=== PATIENT | female | born 1970 | race Caucasian/White ===

== ENCOUNTER 2016-08-23 11:47 | Emergency (ER) | payer OTHER ==
--- NOTE | 2016-08-23 15:04 | DIAGNOSTIC IMAGING REPORT ---
PROCEDURE: CT ABDOMEN/PELVIS W/O CONTRAST INDICATION: Right flank pain. TECHNIQUE: Noncontrast axial images were obtained of the entire abdomen and pelvis with sagittal and coronal reformations. COMPARISON: CT abdomen/pelvis 09/10/2010. FINDINGS: ABDOMEN: 3 mm nonobstructing left renal calculus. Normal right kidney and ureters. Mild right middle lobe and lingular scarring. Left breast implant. Heart size is normal. Liver, gallbladder, pancreas, spleen and adrenal glands are normal. Normal abdominal aorta. Minor inflammation of the root of the mesentery with a few small lymph nodes. Nonspecific bowel gas pattern. PELVIS: History of appendectomy. Enlarged uterus measures 11.8 x 9.0 x 6.8 cm. Nabothian cyst. Vaginal tampon in place. No pelvic mass, inflammatory changes or free fluid. Mild levoscoliosis. IMPRESSION: 1. 3 mm nonobstructing left renal calculus 2. Minor inflammatory changes of the root of the mesentery with a few small mesenteric nodes. 3. Appendectomy 4. Enlarged uterus 5. Results discussed with RAYSHAWN Watts All CT scans at this facility use dose modulation, iterative reconstruction, and/or weight-based dosing when appropriate to reduce radiation dose to as low as reasonably achievable.
--- NOTE | 2016-08-23 15:07 | ED ORDER SUMMARY ---
..... Patient: BRENDEN ORTEGA OrderSheet [facility] VisitID: [id number] [place] [address] 46y, F Registration Date/Time: 08/23/2016 ORDER SHEET Weight: 86.1 kg (stated) Allergies: Augmentin, Sulfa Drugs GENERAL ORDERS: CBC w Diff Urgent (12:15 08/23/2016 EKoroleva P.A.-C) (Ack 12:17 PWeiler ER Tech1) (13:40 MWinterer R.N.) CMP Urgent (12:15 08/23/2016 EKoroleva P.A.-C) (Ack 12:17 PWeiler ER Tech1) (13:40 MWinterer R.N.) UA-Culture if indicated Urgent (12:15 08/23/2016 EKoroleva P.A.-C) (Ack 12:17 PWeiler ER Tech1) (13:43 MWinterer R.N.) Lipase Urgent (12:20 08/23/2016 EKoroleva P.A.-C) (Ack 12:24 PWeiler ER Tech1) (13:40 MWinterer R.N.) CT Abd/Pel wo Cont Urgent (14:16 08/23/2016 EKoroleva P.A.-C) (Ack 14:19 PWeiler ER Tech1) (14:47 MWinterer R.N.) Vitals (14:30 08/23/2016 EKoroleva P.A.-C) (14:49 MWinterer R.N.) Culture, Urine (Urine, Clean Catch) (from urine in lab) Urgent (15:06 08/23/2016 EKoroleva P.A.-C) (Ack 15:08 PWeiler ER Tech1) (15:18 PWeiler ER Tech1) MEDICATION ORDERS: Hydrocodone-APAP PO 5/325 mg (NOW, HIGH ALERT MEDICATION) (15:15 08/23/2016 EKoroleva P.A.-C) (15:23 MWinterer R.N.) IV FLUIDS: Dilaudid IV 0.5 mg (HIGH ALERT MEDICATION, NOW) (12:15 08/23/2016 Anitra Almanza) (Ack 12:17 MWinterer R.N.) (12:39 MWinterer R.N.) IV Saline Lock (12:15 08/23/2016 Anitra Almanza) (Ack 12:17 MWinterer R.N.) (12:38 MWinterer R.N.) Valium IV 2 mg (HIGH ALERT MEDICATION, NOW) (13:38 08/23/2016 Anitra Almanza) (Ack 13:40 MWinterer R.N.) (Cancelled: Patient Ogpbgnd60:43 MWinterer R.N.) Toradol IV 30 mg (NOW) (13:44 08/23/2016 MWinterer R.N. verbal order read back to Anitra Almanza) (Ack 13:44 MWinterer R.N.) (14:02 MWinterer R.N.) ORDER SHEET NOTES: [Electronically signed by Radhika Awan P.A.-C (15:58 08/23/2016)] [Electronically signed by Abbey Cano R.N. (16:13 08/23/2016)] [Electronically locked/signed by Abbey Cano R.N. (16:13 08/23/2016)]
--- NOTE | 2016-08-23 15:07 | ED NURSING NOTES ---
Clinical Report - Nurses [address] [place] [address] 08/23/2016 11:50 Patient: BRENDEN ORTEGA TRIAGE Acuity: LEVEL 3. Chief Complaint: NAUSEA and FLANK PAIN. Alert. No acute distress. SEPSIS SCREEN: Sepsis Screen. Negative (no infection suspected/documented). --12:16 Abbey Cano R.N. 11:59 08/23/16. BP: 151/90. HR: 81. RR: 20. O2 saturation: 98%. Temp: 98.4 F (oral). Pain level now: 09/29. --12:16 Abbey Cano R.N. Weight: 86.1 kg stated. Height/Length: 64 inches Per Patient. BMI: 32.6. --12:13 Abbey Cano R.N. Medications Remicade Intravenous, every 7 weeks. --12:08 Abbey Cano R.N. AzaTHIOprine Oral (Tablet 50 mg). --12:08 Abbey Cano R.N. Cholecalciferol Oral 10 mg . --12:09 Abbey Cano R.N. Dicyclomine HCl Oral 10 mg. --12:09 Abbey Cano R.N. Hyoscyamine Sulfate Oral. --12:10 Abbey Cano R.N. Minocycline Hcl Oral. --12:10 Abbey Cano R.N. Omeprazole Oral. --12:10 Abbey Cano R.N. Tylenol Oral. --12:10 Abbey Cano R.N. Vedolizumab Intravenous. --12:11 Abbey Cano R.N. Medication/allergy information source: the patient. --12:16 Abbey Cano R.N. Allergies Augmentin. Sulfa Drugs. --12:14 Abbey Cano R.N. History Arrived by private vehicle. Historian: patient. Unaccompanied. Primary physician (Jodee). Onset. (6 days ago). Relates location as in the right flank area. She has had nausea and vomiting. No diarrhea. 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 PAST MEDICAL HX: Crohn's disease. Immunizations: up-to-date. Last normal menstrual period now. Has had a tubal ligation. SOCIAL HX: Light tobacco smoker (cigarette)- less than 1/2 a pack per day. Occasional alcohol use. History of weekly drug use: marijuana. No recent travel. No known contact with a sick individual. FALL RISK ASSESSMENT: Fall risk assessment completed. No fall risk identified. NUTRITIONAL RISK ASSESSMENT: The nutritional risk assessment revealed no deficiencies. FUNCTIONAL ASSESSMENT: Functional assessment: no impairments noted. LEARNING NEEDS ASSESSMENT: The learning needs assessment revealed no barriers. SKIN INTEGRITY ASSESSMENT: Skin integrity risk assessment completed. No skin integrity risk identified. --12:16 Abbey Cano R.N. PROBLEMS: Nephrolithiasis. --12:12 Abbey Cano R.N. ADDITIONAL SURGERIES: Appendectomy. --12:15 Abbey Cano R.N. Tubal Ligation. --12:15 Abbey Cano R.N. Assessment GENERAL / NEURO / PSYCH: Alert. Oriented X 4. Appears in no acute distress. Patient appears calm and cooperative. RESPIRATORY: Respirations not labored. CVS: Capillary refill less than 2 seconds. GI / : Abdomen soft and nontender. SKIN: Mucous membranes are pink. Skin is warm and dry. --12:16 Abbey Cano R.N. Interventions ID band on patient. To treatment room. Ambulatory. --12:16 Abbey Cano R.N. PHYSICAL ASSESSMENT 12:08/23/16. Ambulatory to room. GENERAL / NEURO / PSYCH: Alert. Oriented X 4. Appears in no acute distress. HEENT: Mucous membranes are pink. RESPIRATORY: Respirations not labored. CVS: Capillary refill less than 2 seconds. GI / : Abdomen soft. SKIN: Skin is warm and dry. --12:02 Abbey Cano R.N. NURSING PROGRESS NOTES 12:08/23/16. The initial plan of care for this patient has been created This plan of care was discussed with the patient. Patient gowned. Two patient identifiers checked. Checked patient name and birthdate: patient confirmed. Call light placed in reach. Side rails up x 1. Bed placed in lowest position. Brakes of bed on. Patient ready for evaluation- chart flagged and ED physician notified. --12:02 Abbey Cano R.N. 12:18 08/23/2016 Site #1 started via IV in the left antecubital space with an 20g angiocath, with aseptic technique and good blood return; one attempt. Blood drawn: rainbow set. Labeled in the presence of the patient and sent to the lab. Saline lock flushed with 10 mL saline. --12:18 Abbey Cano R.N. 12:39 08/23/2016 Dilaudid (HYDROmorphone HCl PF) IVP 0.5 mg given over 2 minute(s) via site #1. Allergies verified, confirmed 5 rights and sedative warning given to the patient. IV patency established. IV site checked: no pain, redness, or swelling. IV flushed thoroughly pre- and post-medication administration. IVP given by RN. --12:39 Abbey Cano R.N. 12:39 08/23/16. Pulse oximeter placed on patient; monitor alarms on. --12:39 Abbey Cano R.N. 13:44 08/23/16. Checked patient name and birthdate: patient confirmed. Instructions provided to collect clean catch urine and patient verbalized understanding. Clean catch urine collected with return of yellow-colored clear urine; sample sent to lab for urinalysis. Specimen labeled in the presence of the patient. --13:45 Abbye Cano R.N. 13:52 08/23/2016 Toradol IVP 30 mg given over 1 minute(s) via site #1. Allergies verified and confirmed 5 rights. IV patency established. IV site checked: no pain, redness, or swelling. IV flushed thoroughly pre- and post-medication administration. IVP given by RN. --14:02 Abbey Cano R.N. 14:50 08/23/16. BP: 135/72. HR: 70. RR: 16. O2 saturation: 100%. Temp: 98.3 F (oral). Pain level now: 07/30. --14:51 Abbey Cano R.N. 15:08 08/23/2016 Hydrocodone-APAP (Hydrocodone-Acetaminophen) PO 5/325 mg Tablets 1 tab given. Allergies verified, confirmed 5 rights and sedative warning given to the patient. --15:23 Abbey Cano R.N. DISPOSITION / DISCHARGE Departure time: 15:15 Aug 23 2016. Condition at departure: improved and stable. No learning barriers present. Discharge instructions provided and reviewed with the patient. Reviewed medication(s) side effects, precautions and dosing information. Prescription(s) given to the patient. Patient verbalized understanding. Written instructions provided in Burmese. The patient was discharged by the physician occupational therapist assistants. She was discharged home and accompanied by parent. She left the Emergency Department ambulatory and via private vehicle. Parent driving. --16:13 Abbey Cano R.N. Locked/Released at 08/23/2016 16:13 by Abbey Cano R.N.
--- NOTE | 2016-08-23 15:07 | ED CLINICAL REPORT ---
Clinical Report - Physicians/Mid Levels [facility] [address] [place] [address] 08/23/2016 11:50 Patient: BRENDEN ORTEGA Time Seen: 12:19 Aug 23 2016. Arrived- By private vehicle. Historian- patient. HISTORY OF PRESENT ILLNESS Chief Complaint: ABDOMINAL PAIN. This started 5 days. (patient presents to the emergency department with abdominal pain over the last 5-6 days, on the flank side of her right lower back with minimal radiation, history of similar with nephrolithiasis. She reports some constipation. Unsure of her last bowel movement. Reports pain improves with decrease in movement/ activity. Currently on her menses. Patient reports history of Crohn's disease, with pain anywhere from her "mouth to anus" as she reports, with swelling of her intestine, and reports intestinal pain chronically.). REVIEW OF SYSTEMS No constipation, black stools, difficulty with urination, urinary frequency or fever. No blurred vision. All systems otherwise negative, except as recorded above. PAST HISTORY Problems: Nephrolithiasis. Crohn's Disease. Additional Surgeries: Appendectomy. Tubal Ligation. Medications: Vedolizumab Intravenous. Tylenol Oral. Omeprazole Oral. Minocycline Hcl Oral. Hyoscyamine Sulfate Oral. Dicyclomine HCl Oral 10 mg. Cholecalciferol Oral 10 mg . AzaTHIOprine Oral (Tablet 50 mg). Remicade Intravenous, every 7 weeks. Allergies: Augmentin. Sulfa Drugs. SOCIAL HISTORY Light tobacco smoker. Alcohol use. History of drug use: marijuana. ADDITIONAL NOTES The nursing notes have been reviewed. PHYSICAL EXAM Vital Signs: 08/23/2016 11:59 BP: 151/90. HR: 81. RR: 20. O2 saturation: 98%. Temp: 98.4 F. Pain level now: 8/10. Appearance: Oriented X3. Appears to be in pain. Patient in mild distress. Eyes: Eyes normal inspection. Neck: Normal inspection. CVS: Normal heart rate and rhythm. Heart sounds normal. Respiratory: No respiratory distress. Breath sounds normal. Abdomen: Soft. No abdominal tenderness or rebound tenderness. The bowel sounds are not abnormal. Back: Normal inspection. No CVA tenderness. Neuro: Oriented X 3. LABS, X-RAYS, AND EKG Abdominal CT: IMPRESSION: 1. 3 mm nonobstructing left renal calculus 2. Minor inflammatory changes of the root of the mesentery with a few small mesenteric nodes. 3. Appendectomy 4. Enlarged uterus 5. Results discussed with Laura Awan, PAC All CT scans at this facility use dose modulation, iterative reconstruction, and/or weight-based dosing when appropriate to reduce radiation dose to as low as reasonably achievable. Electronically Final signed by:Pankaj Godfrey MD 08/23/2016 3:04:26 PM. Laboratory Tests: UA-Culture if indicated: (LYLY: 08/23/2016 13:40) ( [facility] 08/23/2016 14:13) Final results Test Result Flag Units (Reference) URINE COLOR YELLOW URINE APPEARANCE CLEAR URINE GLUCOSE NEGATIVE (NEGATIVE) URINE BILIRUBIN NEGATIVE (NEGATIVE) URINE KETONE NEGATIVE (NEGATIVE) URINE SPECIFIC GRAVITY 1.010 (1.010-1.030) URINE PH 7.0 (5.0-8.0) URINE PROTEIN NEGATIVE (NEGATIVE) URINE UROBILINOGEN 0.2 EU/dL (0.2-1.0) URINE NITRITE NEGATIVE (NEGATIVE) URINE BLOOD TRACE-LYSED (NEGATIVE) URINE LEUK ESTERASE NEGATIVE (NEGATIVE) URINE RBC 1-3 rbc/hpf (0-1) URINE WBC RARE wbc/hpf (0-1) URINE EPITHELIAL CELLS 0-1 EPI/hpf (0-5) URINE BACTERIA FEW (1+) (NONE SEEN) URINE COMMENT CULT NOT INDICATED URINE CULTURES ARE SET-UP BASED ON THE FOLLOWING CRITERIA:POSITIVE NITRITEPOSITIVE LEUKOCYTE ESTERASEGREATER THAN 10 WHITE BLOOD CELLSMODERATE (2+) OR GREATER BACTERIA CBC w Diff: (LYLY: 08/23/2016 12:20) ( [facility] [place] 08/23/2016 12:27) Final results Test Result Flag Units (Reference) WHITE BLOOD COUNT 9.5 K/uL (4.5-11.5) RED BLOOD COUNT 4.37 M/uL (4.00-5.20) HEMOGLOBIN 11.5 L gm/dL (12.0-16.0) HEMATOCRIT 35.9 L % (36.0-46.0) MEAN CELL VOLUME 82 fL (80-100) MEAN CORPUSCULAR HGB 26 pg (26-34) MEAN CORPUSCULAR HGB CONC 32 g/dL (31-37) RED CELL DISTRIBUTION WIDTH 16.4 H % (11.6-14.8) PLATELET COUNT 374 K/uL (150-400) NEUTROPHIL % 73.2 % (50-75) LYMPH % 21.6 L % (25-40) MONO % 3.2 % (3-14) EOSINOPHIL % 1.6 % (0-4) BASOPHIL % 0.4 % (0-2) CMP: (LYLY: 08/23/2016 12:20) ( MsgRcvd 08/23/2016 12:42) Final results Test Result Flag Units (Reference) GLUCOSE 104 mg/dL (70-110) BUN 6 L mg/dL (7-18) CREATININE 0.8 mg/dL (0.6-1.3) Estimated GFR >60 mL/min Estimated GFR- >60 mL/min Note: Persistent reduction over 3 months in eGFR<60 mL/min/1.73 m2 defines CKD. Patients with eGFR values>=60 mL/min/1.73 m2 may also have CKD if evidence ofpersistent proteinuria. Additional information may be foundat www.kidney.org. SODIUM 139 mmol/L (136-145) POTASSIUM 3.7 mmol/L (3.5-5.1) CHLORIDE 103 mmol/L (98-107) CARBON DIOXIDE 25 mmol/L (21-32) CALCIUM 8.5 mg/dL (8.5-10.1) TOTAL PROTEIN 7.7 g/dL (6.4-8.2) ALBUMIN 3.0 L g/dL (3.3-5.0) BILIRUBIN, TOTAL 0.5 mg/dL (0.0-1.0) ALKALINE PHOSPHATASE 75 U/L (46-116) AST (SGOT) 25 U/L (15-37) ALT (SGPT) 24 U/L (12-78) LIPASE 204 U/L (73-393) . PROGRESS AND PROCEDURES Course of Care: Afebrile patient with reproducible pain on the lumbar right flank sign. Abdomen is soft nontender. Labs are unremarkable, CT abdomen unremarkable. During the time in the ED, the following DDX were considered: acute surgical abdomen, hemodynamic or metabolic instability, dehydration, gastroenteritis-viral, food borne, or bacterial, food intolerance, irritable or inflammatory bowel, infection, sepsis. 08/23/2016 14:50 BP: 135/72. HR: 70. RR: 16. O2 saturation: 100%. Temp: 98.3 F. Pain level now: 610. Patient is stable. Symptoms better. Patient/family counseled. Disposition: Discharged. Condition: good. CLINICAL IMPRESSION Acute lumbar strain. Acute right flank pain INSTRUCTIONS Drink plenty of fluids. (alternate ice/ heat). Prescription Medications: Hydrocodone/APAP 5mg / 325mg: take 1 orally every 6 hours as needed for pain. Dispense twelve (12). No refill. (Electronically signed by Radhika Awan P.A.-C 08/23/2016 15:58)
--- NOTE | 2016-08-23 15:07 | ED NURSING NOTES ---
Clinical Report - Nurses [address] [place] [address] 08/23/2016 11:50 Patient: BRENDEN ORTEGA TRIAGE Acuity: LEVEL 3. Chief Complaint: NAUSEA and FLANK PAIN. Alert. No acute distress. SEPSIS SCREEN: Sepsis Screen. Negative (no infection suspected/documented). --12:16 Abbey Cano R.N. 11:59 08/23/16. BP: 151/90. HR: 81. RR: 20. O2 saturation: 98%. Temp: 98.4 F (oral). Pain level now: 09/29. --12:16 Abbey Cano R.N. Weight: 86.1 kg stated. Height/Length: 64 inches Per Patient. BMI: 32.6. --12:13 Abbey Cano R.N. Medications Remicade Intravenous, every 7 weeks. --12:08 Abbey Cano R.N. AzaTHIOprine Oral (Tablet 50 mg). --12:08 Abbey Cano R.N. Cholecalciferol Oral 10 mg . --12:09 Abbey Cano R.N. Dicyclomine HCl Oral 10 mg. --12:09 Abbey Cano R.N. Hyoscyamine Sulfate Oral. --12:10 Abbey Cano R.N. Minocycline Hcl Oral. --12:10 Abbey Cano R.N. Omeprazole Oral. --12:10 Abbey Cano R.N. Tylenol Oral. --12:10 Abbey Cano R.N. Vedolizumab Intravenous. --12:11 Abbey Cano R.N. Medication/allergy information source: the patient. --12:16 Abbey Cano R.N. Allergies Augmentin. Sulfa Drugs. --12:14 Abbey Cano R.N. History Arrived by private vehicle. Historian: patient. Unaccompanied. Primary physician (Jodee). Onset. (6 days ago). Relates location as in the right flank area. She has had nausea and vomiting. No diarrhea. 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 PAST MEDICAL HX: Crohn's disease. Immunizations: up-to-date. Last normal menstrual period now. Has had a tubal ligation. SOCIAL HX: Light tobacco smoker (cigarette)- less than 1/2 a pack per day. Occasional alcohol use. History of weekly drug use: marijuana. No recent travel. No known contact with a sick individual. FALL RISK ASSESSMENT: Fall risk assessment completed. No fall risk identified. NUTRITIONAL RISK ASSESSMENT: The nutritional risk assessment revealed no deficiencies. FUNCTIONAL ASSESSMENT: Functional assessment: no impairments noted. LEARNING NEEDS ASSESSMENT: The learning needs assessment revealed no barriers. SKIN INTEGRITY ASSESSMENT: Skin integrity risk assessment completed. No skin integrity risk identified. --12:16 Abbey Cano R.N. PROBLEMS: Nephrolithiasis. --12:12 Abbey Cano R.N. ADDITIONAL SURGERIES: Appendectomy. --12:15 Abbey Cano R.N. Tubal Ligation. --12:15 Abbey Cano R.N. Assessment GENERAL / NEURO / PSYCH: Alert. Oriented X 4. Appears in no acute distress. Patient appears calm and cooperative. RESPIRATORY: Respirations not labored. CVS: Capillary refill less than 2 seconds. GI / : Abdomen soft and nontender. SKIN: Mucous membranes are pink. Skin is warm and dry. --12:16 Abbey Cano R.N. Interventions ID band on patient. To treatment room. Ambulatory. --12:16 Abbey Cano R.N. PHYSICAL ASSESSMENT 12:08/23/16. Ambulatory to room. GENERAL / NEURO / PSYCH: Alert. Oriented X 4. Appears in no acute distress. HEENT: Mucous membranes are pink. RESPIRATORY: Respirations not labored. CVS: Capillary refill less than 2 seconds. GI / : Abdomen soft. SKIN: Skin is warm and dry. --12:02 Abbey aCno R.N. NURSING PROGRESS NOTES 12:08/23/16. The initial plan of care for this patient has been created This plan of care was discussed with the patient. Patient gowned. Two patient identifiers checked. Checked patient name and birthdate: patient confirmed. Call light placed in reach. Side rails up x 1. Bed placed in lowest position. Brakes of bed on. Patient ready for evaluation- chart flagged and ED physician notified. --12:02 Abbey Cano R.N. 12:18 08/23/2016 Site #1 started via IV in the left antecubital space with an 20g angiocath, with aseptic technique and good blood return; one attempt. Blood drawn: rainbow set. Labeled in the presence of the patient and sent to the lab. Saline lock flushed with 10 mL saline. --12:18 Abbey Cano R.N. 12:39 08/23/2016 Dilaudid (HYDROmorphone HCl PF) IVP 0.5 mg given over 2 minute(s) via site #1. Allergies verified, confirmed 5 rights and sedative warning given to the patient. IV patency established. IV site checked: no pain, redness, or swelling. IV flushed thoroughly pre- and post-medication administration. IVP given by RN. --12:39 Abbey Cano R.N. 12:39 08/23/16. Pulse oximeter placed on patient; monitor alarms on. --12:39 Abbey Cano R.N. 13:44 08/23/16. Checked patient name and birthdate: patient confirmed. Instructions provided to collect clean catch urine and patient verbalized understanding. Clean catch urine collected with return of yellow-colored clear urine; sample sent to lab for urinalysis. Specimen labeled in the presence of the patient. --13:45 Abbey Cano R.N. 13:52 08/23/2016 Toradol IVP 30 mg given over 1 minute(s) via site #1. Allergies verified and confirmed 5 rights. IV patency established. IV site checked: no pain, redness, or swelling. IV flushed thoroughly pre- and post-medication administration. IVP given by RN. --14:02 Abbey Cano R.N. 14:50 08/23/16. BP: 135/72. HR: 70. RR: 16. O2 saturation: 100%. Temp: 98.3 F (oral). Pain level now: 07/30. --14:51 Abbey Cano R.N. 15:08 08/23/2016 Hydrocodone-APAP (Hydrocodone-Acetaminophen) PO 5/325 mg Tablets 1 tab given. Allergies verified, confirmed 5 rights and sedative warning given to the patient. --15:23 Abbey Cano R.N. DISPOSITION / DISCHARGE Departure time: 15:15 Aug 23 2016. Condition at departure: improved and stable. No learning barriers present. Discharge instructions provided and reviewed with the patient. Reviewed medication(s) side effects, precautions and dosing information. Prescription(s) given to the patient. Patient verbalized understanding. Written instructions provided in Austrian. The patient was discharged by the physician showroom sales assistant. She was discharged home and accompanied by parent. She left the Emergency Department ambulatory and via private vehicle. Parent driving. --16:13 Abbey Cano R.N. Locked/Released at 08/23/2016 16:13 by Abbey Cano R.N.
--- NOTE | 2016-08-23 15:07 | ED ORDER SUMMARY ---
..... Patient: BRENDEN ORTEGA OrderSheet [facility] VisitID: [id number] [place] [address] 46y, F Registration Date/Time: 08/23/2016 ORDER SHEET Weight: 86.1 kg (stated) Allergies: Augmentin, Sulfa Drugs GENERAL ORDERS: CBC w Diff Urgent (12:15 08/23/2016 EKoroleva P.A.-C) (Ack 12:17 PWeiler ER Tech1) (13:40 MWinterer R.N.) CMP Urgent (12:15 08/23/2016 EKoroleva P.A.-C) (Ack 12:17 PWeiler ER Tech1) (13:40 MWinterer R.N.) UA-Culture if indicated Urgent (12:15 08/23/2016 EKoroleva P.A.-C) (Ack 12:17 PWeiler ER Tech1) (13:43 MWinterer R.N.) Lipase Urgent (12:20 08/23/2016 EKoroleva P.A.-C) (Ack 12:24 PWeiler ER Tech1) (13:40 MWinterer R.N.) CT Abd/Pel wo Cont Urgent (14:16 08/23/2016 EKoroleva P.A.-C) (Ack 14:19 PWeiler ER Tech1) (14:47 MWinterer R.N.) Vitals (14:30 08/23/2016 EKoroleva P.A.-C) (14:49 MWinterer R.N.) Culture, Urine (Urine, Clean Catch) (from urine in lab) Urgent (15:06 08/23/2016 EKoroleva P.A.-C) (Ack 15:08 PWeiler ER Tech1) (15:18 PWeiler ER Tech1) MEDICATION ORDERS: Hydrocodone-APAP PO 5/325 mg (NOW, HIGH ALERT MEDICATION) (15:15 08/23/2016 EKoroleva P.A.-C) (15:23 MWinterer R.N.) IV FLUIDS: Dilaudid IV 0.5 mg (HIGH ALERT MEDICATION, NOW) (12:15 08/23/2016 Anitra Almanza) (Ack 12:17 MWinterer R.N.) (12:39 MWinterer R.N.) IV Saline Lock (12:15 08/23/2016 Anitra Almanza) (Ack 12:17 MWinterer R.N.) (12:38 MWinterer R.N.) Valium IV 2 mg (HIGH ALERT MEDICATION, NOW) (13:38 08/23/2016 Anitra Almanza) (Ack 13:40 MWinterer R.N.) (Cancelled: Patient Lpswwrm08:43 MWinterer R.N.) Toradol IV 30 mg (NOW) (13:44 08/23/2016 MWinterer R.N. verbal order read back to Anitra Almanza) (Ack 13:44 MWinterer R.N.) (14:02 MWinterer R.N.) ORDER SHEET NOTES: [Electronically signed by Radhika Awan P.A.-C (15:58 08/23/2016)] [Electronically signed by Abbey Cano R.N. (16:13 08/23/2016)] [Electronically locked/signed by Abbey Cano R.N. (16:13 08/23/2016)]
--- NOTE | 2016-08-23 16:14 | ED MED RECONCILIATION SUMMARY ---
Patient: BRENDEN ORTEGA Medication Reconciliation Report [facility] VisitID: [id number] [address] [place] [address] 46y, F Registration Date/Time: 08/23/2016 Weight: 86.1 kg Height/Length: 64 in. BMI: 32.6 ALLERGIES: Augmentin, Sulfa Drugs The patient's Home Medications are listed below: THE FOLLOWING MEDICATIONS NEED TO BE RECONCILED: AzaTHIOprine Oral (50 mg) Cholecalciferol Oral 10 mg Dicyclomine HCl Oral 10 mg Hyoscyamine Sulfate Oral Minocycline Hcl Oral Omeprazole Oral Remicade Intravenous, every 7 weeks Tylenol Oral Vedolizumab Intravenous The source(s) of the original Home Medication information: patient The following Medications were given to the patient in the Emergency Department: Dilaudid [IVP] IVP 0.5 mg, administered: 08/23/2016 12:39:00 PM Toradol [IVP] IVP 30 mg, administered: 08/23/2016 1:52:00 PM Hydrocodone-APAP [PO] PO 1 tab, administered: 08/23/2016 3:08:00 PM The following Medications were prescribed to the patient: Hydrocodone/APAP 5mg / 325mg: take 1 orally every 6 hours as needed for pain. Dispense twelve (12). No refill. -- Radhika Awan P.A.-C
--- NOTE | 2016-08-23 16:14 | ED MAR SUMMARY ---
..... Medication Administration Record [facility] [address] [place] [address] Patient: BRENDEN ORTEGA Visit ID: [id number] 46y, F Weight: 86.1 kg Height/Length: 64 in BMI: 32.6 ALLERGIES: Augmentin, Sulfa Drugs Given 12:39 08/23/2016 Abbey Cano RTanya Medication Administered: DILAUDID [IVP] (HYDROMORPHONE HCL PF), Dose: 0.5 mg IVP over 2 minute(s), Site: #1 left AC. Medication Ordered: Dilaudid IV 0.5 mg (HIGH ALERT MEDICATION, NOW). Given 13:52 08/23/2016 Abbey Cano R.N. Medication Administered: TORADOL [IVP], Dose: 30 mg IVP over 1 minute(s), Site: #1 left AC. Medication Ordered: Toradol IV 30 mg (NOW). Given 15:08 08/23/2016 Abbey Cano R.NLinda Medication Administered: HYDROCODONE-APAP [PO] (HYDROCODONE-ACETAMINOPHEN), Dose: 1 tab 5/325 mg Tablets PO. Medication Ordered: Hydrocodone-APAP PO 5/325 mg (NOW, HIGH ALERT MEDICATION).
--- NOTE | 2016-08-23 16:14 | ED MAR SUMMARY ---
..... Medication Administration Record [facility] [address] [place] [address] Patient: BRENDEN ORTEGA Visit ID: [id number] 46y, F Weight: 86.1 kg Height/Length: 64 in BMI: 32.6 ALLERGIES: Augmentin, Sulfa Drugs Given 12:39 08/23/2016 Abbey Cano RTanya Medication Administered: DILAUDID [IVP] (HYDROMORPHONE HCL PF), Dose: 0.5 mg IVP over 2 minute(s), Site: #1 left AC. Medication Ordered: Dilaudid IV 0.5 mg (HIGH ALERT MEDICATION, NOW). Given 13:52 08/23/2016 Abbey Cano R.N. Medication Administered: TORADOL [IVP], Dose: 30 mg IVP over 1 minute(s), Site: #1 left AC. Medication Ordered: Toradol IV 30 mg (NOW). Given 15:08 08/23/2016 Abbey Cano R.NLinda Medication Administered: HYDROCODONE-APAP [PO] (HYDROCODONE-ACETAMINOPHEN), Dose: 1 tab 5/325 mg Tablets PO. Medication Ordered: Hydrocodone-APAP PO 5/325 mg (NOW, HIGH ALERT MEDICATION).
--- NOTE | 2016-08-23 16:14 | ED MED RECONCILIATION SUMMARY ---
Patient: BRENDEN ORTEGA Medication Reconciliation Report [facility] VisitID: [id number] [address] [place] [address] 46y, F Registration Date/Time: 08/23/2016 Weight: 86.1 kg Height/Length: 64 in. BMI: 32.6 ALLERGIES: Augmentin, Sulfa Drugs The patient's Home Medications are listed below: THE FOLLOWING MEDICATIONS NEED TO BE RECONCILED: AzaTHIOprine Oral (50 mg) Cholecalciferol Oral 10 mg Dicyclomine HCl Oral 10 mg Hyoscyamine Sulfate Oral Minocycline Hcl Oral Omeprazole Oral Remicade Intravenous, every 7 weeks Tylenol Oral Vedolizumab Intravenous The source(s) of the original Home Medication information: patient The following Medications were given to the patient in the Emergency Department: Dilaudid [IVP] IVP 0.5 mg, administered: 08/23/2016 12:39:00 PM Toradol [IVP] IVP 30 mg, administered: 08/23/2016 1:52:00 PM Hydrocodone-APAP [PO] PO 1 tab, administered: 08/23/2016 3:08:00 PM The following Medications were prescribed to the patient: Hydrocodone/APAP 5mg / 325mg: take 1 orally every 6 hours as needed for pain. Dispense twelve (12). No refill. -- Radhika Awan P.A.-C
--- NOTE | 2016-08-23 16:14 | ED DISCHARGE INSTRUCTIONS ---
Patient: BRENDEN ORTEGA General Instructions [facility] VisitID: [id number] [place] [address] 46y, F Registration Date/Time: 08/23/2016 Acute lumbar strain. Acute right flank pain INSTRUCTIONS Drink plenty of fluids. (alternate ice/ heat). Prescription Medications: Hydrocodone/APAP 5mg / 325mg: take 1 orally every 6 hours as needed for pain. Dispense twelve (12). No refill. ADDITIONAL INFORMATION Back Pain [Acute Or Chronic] Back pain is usually caused by an injury to the muscles or ligaments of the spine. Sometimes the disks that separate each bone in the spine may bulge and cause pain by pressing on a nearby nerve. Back pain may also appear after a sudden twisting/bending force (such as in a car accident), after a simple awkward movement, or lifting something heavy with poor body positioning. In either case, muscle spasm is often present and adds to the pain. Acute back pain usually gets better in one to two weeks. Back pain related to disk disease, arthritis in the spinal joints or spinal stenosis (narrowing of the spinal canal) can become chronic and last for months or years. Unless you had a physical injury (for example, a car accident or fall) X-rays are usually not ordered for the initial evaluation of back pain. If pain continues and does not respond to medical treatment, x-rays and other tests may be performed at a later time. Home Care: You may need to stay in bed the first few days. But, as soon as possible, begin sitting or walking to avoid problems with prolonged bed rest (muscle weakness, worsening back stiffness and pain, blood clots in the legs). When in bed, try to find a position of comfort. A firm mattress is best. Try lying flat on your back with pillows under your knees. You can also try lying on your side with your knees bent up towards your chest and a pillow between your knees. Avoid prolonged sitting. This puts more stress on the lower back than standing or walking. During the first two days after injury, apply an ICE PACK to the painful area for 20 minutes every 2-4 hours. This will reduce swelling and pain. HEAT (hot shower, hot bath or heating pad) works well for muscle spasm. You can start with ice, then switch to heat after two days. Some patients feel best alternating ice and heat treatments. Use the one method that feels the best to you. You may use acetaminophen (Tylenol) or ibuprofen (Motrin, Advil) to control pain, unless another pain medicine was prescribed. [NOTE: If you have chronic liver or kidney disease or ever had a stomach ulcer or GI bleeding, talk with your doctor before using these medicines.] Be aware of safe lifting methods and do not lift anything over 15 pounds until all the pain is gone. Follow Up with your doctor or this facility if your symptoms do not start to improve after one week. Physical therapy may be needed. [NOTE: If X-rays were taken, they will be reviewed by a radiologist. You will be notified of any new findings that may affect your care.] Get Prompt Medical Attention if any of the following occur: Pain becomes worse or spreads to your legs Weakness or numbness in one or both legs Loss of bowel or bladder control Numbness in the groin or genital area Flank Pain[Uncertain Cause] The flank is the area between the upper abdomen and the back. Pain here is often related to the kidneyan infection or a kidney stone. Other causes of flank pain include spinal arthritis, pinched nerve from a disk injury, back muscle strain or spasm. The cause of your flank pain is not certain and further tests may be needed. Home Care: You may use acetaminophen (Tylenol) or ibuprofen (Motrin, Advil) to control pain, unless another medicine was prescribed. [NOTE: If you have chronic liver or kidney disease or ever had a stomach ulcer or GI bleeding, talk with your doctor before using these medicines.] If the cause of your pain is coming from the muscles, ice or heat may give relief. During the first two days after injury, apply an ICE PACK to the painful area for 20 minutes every 2-4 hours. This will reduce swelling and pain. HEAT (hot shower, hot bath or heating pad) works well for muscle spasm. You can start with ice, then switch to heat after two days. Some patients feel best alternating ice and heat treatments. Use the one method that feels the best to you. Follow Up with your doctor or as advised by our staff for further evaluation if your symptoms are not improving over the next few days. Return Promptly or contact your doctor if any of the following occur: Repeated vomiting Fever of 100.4F (38C) or higher, or as directed by your healthcare provider Increasing flank pain Pain that spreads to the front of the abdomen Dizziness, weakness or fainting Blood in your urine Burning with urination or frequent urination Increasing pain in the leg Numbness or weakness in the leg You have been given the following additional information: Back Pain (Acute Or Chronic) Flank Pain, Uncertain Cause (Electronically signed by Radhika Awan P.A.-C 08/23/2016 15:58)
== END 2016-08-23 15:15 | disposition home or self-care (01) ==
LOC: ED SRH 11:47
DX: S39.012A Strain of muscle, fascia and tendon of lower back, initial encounter (principal); R10.31 Right lower quadrant pain; X58.XXXA Exposure to other specified factors, initial encounter; Y93.9 Activity, unspecified; Y99.9 Unspecified external cause status; Y92.9 Unspecified place or not applicable; K50.90 Crohn's disease, unspecified, without complications; Z88.1 Allergy status to other antibiotic agents; Z79.899 Other long term (current) drug therapy; Z79.1 Long term (current) use of non-steroidal anti-inflammatories (NSAID)
CPT/HCPCS: 90004; 90100; 90469; 92235; 95059